=== PATIENT | female | born 2000 | race Caucasian/White ===

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

== ENCOUNTER 2020-01-08 16:10 | Emergency (ER) | payer SELFPAY ==
--- OUTSIDE RECORDS SUMMARY | 2020-01-08 16:11 | XMS REPORT | Summary of Care ---
:2000 Author Organization [facility] - Health Address [address] [place] [address] Care Team Providers Name Role Phone Pcp, Does Not Have A Primary Care Provider Encounter Details Date Type Department Care Team Description 10/12/2019 Orders Only [facility] Doctor Unassigned, No [address] [facility] [place] [address] [address] [id number] Allergies Active Allergy Reactions Severity Noted Date Comments Shrimp Anaphylaxis 04/11/2018 Olanzapine Swelling, Other - See comments 10/22/2018 Muscle rigidity documented as of this encounter (statuses as of 10/12/2019) Medications Medication Sig Dispensed Refills Start Date End Date Status METADATE CD ORAL once daily 0 Ac tive SUPRAX 100 MG/5 ML ORAL 4ml 2x daily 0 Active SUSR AMOXICILLIN 400 MG/5 ML 1tsp po 2x daily 0 Active ORAL SUSR documented as of this encounter (statuses as of 10/12/2019) Active Problems Problem Noted Date Special screening for other specified conditions(V82.8 9) 11/30/2006 Overview: [place] - familia Routine or child health check 08/16/2006 Overview: 2 week, 4 months, 7 months, 9 months, 4 year, 5 year, Attention deficit hyperactivity disorder (ADHD) 2006 Overview: ICD10 Diagnosis Term Rental Agent Utility Urinary incontinence 08/16/2006 Overview: ICD10 Diagnosis Term Rental Agent Utility Other and unspecified diseases of upper respiratory tr act 08/16/2006 documented as of this encounter (statuses as of 10/12/2019) Immunizations Name Administration Dates Next Due Varicella (varivax)(chicken pox) 10/18/2006 documented as of this encounter Social History Tobacco Use Types Packs/Day Years Used Date Never Assessed Sex Assigned at Date Recorded Not on file Job Start Date Occupation Industry Not on file Not on file Not on file Travel History Travel Start Travel End No recent travel history available. documented as of this encounter Last Filed Vital Signs Not on filedocumented in this encounter Plan of Treatment Health Maintenance Due Date Last Done Comments VARICELLA VACCINES (2 of 2 - 01/10/2007 10/18/2006 2-dose childhood series) MENINGOCOCCAL B VACCINES (1 of 2 - 2010 Risk Bexsero 2-dose series) DTaP,Tdap,and Td Vaccines (1 - 2011 Tdap) HPV VACCINES (1 - Female 2-dose 2011 series) Depression Screening 2012 WELL CARE VISIT: 12-21 YEARS 2012 (yearly) CHLAMYDIA SCREENING 2016 11/18/2004 INFLUENZA VACCINE (Season Ended) 2019 MENINGOCOCCAL VACCINE Aged Out No longer eligible based on patient's age to complete this topic PNEUMOCOCCAL 0-64 YEARS COMBINED Aged Out No longer eligible based on SERIES patient's age to complete this topic documented as of this encounter Procedures Procedure Name Priority Date/Time Associated Diagnosis Comme nts CONSENT/REFUSAL FOR Routine 10/12/2019 1:51 PM CDT DIAGNOSIS AND TREATMENT documented in this encounter Results Not on filedocumented in this encounter Insurance Payer Benefit Plan / Subscriber ID Effective Dates Phone Addre ss Type Group SUPERIOR SUPERIOR STAR xxxxxxxxx 1993-Maximus [place] , Medicaid HEALTH PLAN - PLUS [facility] [phone] MANAGED MEDICAID documented as of this encounter
--- OUTSIDE RECORDS SUMMARY | 2020-01-08 16:12 | XMS REPORT | Summary of Care ---
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 Acute cystitis with hematuria [address] [place] [address] [place], [place] [phone] Allergies Active Allergy Reactions Severity Noted Date Comments Shrimp Anaphylaxis 04/11/2018 Olanzapine Swelling, Other - See comments 10/22/2018 Muscle rigidity documented as of this encounter (statuses as of 10/12/2019) Medications Medication Sig Dispensed Refills Start Date End Date Status METADATE CD ORAL once daily 0 Ac tive SUPRAX 100 MG/5 ML 4ml 2x daily 0 Active ORAL SUSR AMOXICILLIN 400 MG/5 1tsp po 2x daily 0 Active ML ORAL SUSR cephALEXin 500 mg Take 1 capsule 14 capsule 0 10/12/201910/18 Active capsuleIndications: by mouth 2 (two) Acute cystitis with times daily for hematuria 7 days. documented as of this encounter (statuses as of 10/12/2019) Active Problems Problem Noted Date Special screening for other specified conditions(V82.8 9) 11/30/2006 Overview: [facility] Routine infant or child health check 08/16/2006 Overview: 2 week, 4 months, 7 months, 9 months, 4 year, 5 year, Attention deficit hyperactivity disorder (ADHD) 2006 Overview: ICD10 Diagnosis Term Honing Machine Set Up Operator Utility Urinary incontinence 08/16/2006 Overview: ICD10 Diagnosis Term Honing Machine Set Up Operator Utility Other and unspecified diseases of upper [...] Travel End No recent travel history available. COVID-19 Exposure Response Date Recorded In the last month, have you been in contact with No / Unsure 10/12/2019 1:51 PM CDT someone who was confirmed or suspected to have Coronavirus / COVID-19? documented as of this encounter Last Filed Vital Signs Vital Sign Reading Time Taken Comments Blood Pressure 108/80 10/12/2019 3:30 PM CDT Pulse 80 10/12/2019 3:30 PM CDT Temperature 36.7 C (98.1 F) 10/12/2019 1:59 PM CDT Respiratory Rate 20 10/12/2019 3:30 PM CDT Oxygen Saturation 99% 10/12/2019 3:30 PM CDT Inhaled Oxygen Concentration - - Weight 59.8 kg (131 lb 12.8 oz) 10/12/2019 1:59 PM CDT Height - - Body Mass Index - - documented in this encounter Discharge Instructions Shelli Frausto FNP - 10/12/2019 You were seen today for Chief Complaint Patient presents with Vaginal Bleeding Your ER diagnosis was ICD-10-CM ICD-9-CM 1. Vaginal bleeding N93.9 623.8 2. Acute cystitis with hematuria N30.01 595.0 NO LIFE-THREATENING FINDINGS ON TODAY'S EXAM. YOUR PRESCRIPTIONS : Medication List ASK your doctor about these medications amoxicillin 400 mg/5 mL oral suspension Commonly known as: AMOXIL METADATE CD ORAL SUPRAX 100 mg/5 mL suspension Generic drug: cefixime ER precautions and follow up : 1. Return to ER if your symptoms should worsen or fail to improve within 72 hours. 2. The care provided in the emergency room was for acute problems only. 3. You should follow up with your primary care provider within 72 hours. 4. Fill and take all your medications as prescribed. 5. Make sure you are staying adequately hydrated. Busque attencion immediatamente si usted tiene los sitomas sigue, vuelve peor o si hay sitomas nuevas o para cualquiera preoccupacion incluyendo dolor del pecho, falta aire, se siente debile, mas fievre, mas dolor, nausea, vomitando, sangrando que no es normal, confusion, baja or pierdas conciencia. FOLLOW-UP RECOMMENDATIONS: RECOMMEND FOLLOW-UP WITH A PRIMARY CARE PROVIDER OR SPECIALIST IN 2-5 DAYS, ESPECIALLY IF NO IMPROVEMENT IN SYMPTOMS. MAY FOLLOW-UP WITH A PROVIDER OF YOUR CHOICE, SUCH : 1. A PHYSICIAN OF YOUR CHOICE 2. [facility], . LOCATIONS IN [facility] 3. [facility], [address] [place] [address]; [phone] OR, IF YOU WISH TO FOLLOW-UP WITHIN THE [facility], MAY TRY THESE OPTIONS (CLINIC APPOINTMENTS AVAILABLE ON LLQP-GM-ABIV BASIS): 1. SCHEDULE AN APPOINTMENT ONLINE AT [email or web address][facility] 2. OR CALL THE [facility] ACCESS CENTER AT OR 3. OR CALL YOUR [facility] PHYSICIAN'S OFFICE DIRECTLY IF YOU ARE ALREADY AN ESTABLISHED [facility] PATIENT. AttachmentsThe following attachments cannot be sent through Care Everywhere. Uterine Bleeding, Understanding (Serbian)Urinary Tract Infections (UTIs), Understanding (Serbian)documented in this encounter Plan of Treatment Name Type Priority Associated Diagnoses Date/Ti me URINE CULTURE LAB STAT Vaginal bleeding 10/12/2019 2:23 PM CDT TOTAL [facility] LAB STAT Add-On Vaginal bleeding 10/12/2019 2:22 PM CDT (QUANTITATIVE) Name Type Priority Associated Diagnoses Order S chedule URINE CULTURE LAB Routine Vaginal bleeding ONCE for 1 Occurrences starting 2019 until 0 TOTAL [facility] LAB STAT Add-On Vaginal bleeding ONCE for 1 Occurrences (QUANTITATIVE) starting 07/2019 until 0 GC & CHLAMYDIA LAB Routine Vaginal bleeding ONCE for 1 Occurrences AMPLIFIED ASSAY starting 07/2019 until 0 Health Maintenance Due Date Last Done Comments [...] encounter Procedures Procedure Name Priority Date/Time Associated Comments Diagnosis URINALYSIS STAT 10/12/2019 2:23 Vaginal bleeding Results for this PM CDT procedure are i n the results section. CBC WITH DIFFERENTIAL STAT 10/12/2019 2:22 Vaginal bleedin g Results for this PM CDT procedure are i n the results section. CBC WITH DIFFERENTIAL STAT 10/12/2019 2:22 Vaginal bleedin g Results for this PM CDT procedure are i n the results section. BASIC METABOLIC PANEL STAT 10/12/2019 2:22 Vaginal bleedin g Results for this (NA, K, CL, CO2, PM CDT procedure a re in GLUCOSE, BUN, the results CREATININE, CA) section. TEST, SERUM STAT 10/12/2019 2:22 Vaginal bleedin g Results for this PM CDT procedure are i n the results section. NOTICE OF PRIVACY Routine 10/12/2019 1:51 PRACTICES PM CDT documented in this encounter Results URINALYSIS (10/12/2019 2:23 PM CDT) Pathologist Sig nature APPEARANCE Clear Clear [facility] COLOR Yellow Yellow [facility] PH 6.0 4.8 - 8.0 [facility] SP GRAVITY 1.015 1.003 - 1.030 [facility] GLU U QUAL Normal Normal [facility] BLOOD 3+ (A) Negative [facility] KETONES 5 mg/dL (A) Negative [facility] PROTEIN Negative Negative [facility] UROBILIN Normal Normal [facility] BILIRUBIN Negative Negative [facility] NITRITE Negative Negative [facility] LEUK NAIMA 25/uL (A) Negative [facility] RBC/HPF 65 (H) 0 - 3 HPF [facility] WBC/HPF 14 (H) 0 - 5 HPF [facility] BACTERIA Few (A) Negative [facility] MUCOUS Slight (A) Negative LPF [facility] SQ EPITH 3 HPF [facility] Specimen Urine - URINE, CLEAN CATCH Performing Organization Address City/State/Zipcode Phone Number [facility] CLIA: [id number], [address] [place] [phone] CBC WITH DIFFERENTIAL (10/12/2019 2:22 PM CDT) Pathologist Sig nature WBC 6.15 4.30 - 11.10 [facility] 10*3/L [facility] RBC 4.02 3.93 - 5.25 [facility] 10*6/L [facility] HGB 12.3 11.6 - 15.0 [facility] g/dL [facility] HCT 35.0 (L) 35.7 - 45.2 % [facility] MCV 87.1 80.6 - 95.5 fL [facility] MCH 30.6 25.9 - 32.8 pg [facility] MCHC 35.1 31.6 - 35.1 [facility] g/dL [facility] RDW-SD 35.4 (L) 39.0 - 49.9 fL [facility] RDW-CV 11.2 (L) 12.0 - 15.5 % [facility] PLT 219 166 - 358 [facility] 10*3/L HOS[facility]ITAL [facility] MPV 10.5 9.5 - 12.9 fL [facility] NRBC/100 WBC 0.0 0.0 - 10.0 /100 [facility] WBCs [facility] NRBC x10^3 <0.01 10*3/L [facility] GRAN MAT (NEUT) % 57.8 % [facility] IMM GRAN % 0.30 % [facility] LYMPH % 29.6 % [facility] MONO % 9.8 % [facility] EOS % 2.0 % [facility] BASO % 0.5 % [facility] GRAN MAT x10^3(ANC) 3.56 1.88 - 7.09 [facility] 10*3/uL [facility] IMM GRAN x10^3 <0.03 0.00 - 0.06 [facility] 10*3/uL HOSPITAL LAB[facility] LYMPH x10^3 1.82 1.32 - 3.29 [facility] 10*3/uL [facility] MONO x10^3 0.60 0.33 - 0.92 [facility] 10*3/uL HOSPITAL LAB[facility] EOS x10^3 0.12 0.03 - 0.39 [facility] 10*3/uL HOSPITAL [facility] BASO x10^3 0.03 0.01 - 0.07 [facility] 10*3/uL [facility] Specimen Blood - VENOUS Performing Organization Address City/State/Zipcode Phone Number [facility] CLIA: [id number], [address] [place] [phone] BASIC METABOLIC PANEL (NA, K, CL, CO2, GLUCOSE, BUN, CREATININE, CA) (10/12/2019 2:22 PM CDT) Pathologist Sig nature NA 137 135 - 145 [facility] mmol/L [facility] K 3.7 3.5 - 5.0 [facility] mmol/L [facility] CL 104 98 - 108 mmol/L [facility] CO2 TOTAL 22 (L) 23 - 31 mmol/L [facility] AGAP 11 2 - 16 [facility] BUN 15 7 - 23 mg/dL [facility] GLUCOSE 89 70 - 110 mg/dL [facility] CREATININE 0.56 0.50 - 1.04 [facility] mg/dL [facility] CALCIUM 9.7 8.6 - 10.6 [facility] mg/dL [facility] eGFR Calculation 139.5 mL/min/1.73m2 [facility] (Non-) [facility] LABORATOR Y eGFR Calculation 169.0 mL/min/1.73m2 [facility] () [facility] Specimen Blood - VENOUS Narrative Performed At Association of Glomerular Filtration Rate (GFR) [facility] and Staging of Kidney Disease* + + +- + | GFR (mL/min/1.73 m2) | With Kidney Damage | Without Kidney Damage + + +- + | >90 | Stage one | Normal + + +- + | 60-89 | Stage two | Decreased GFR + + +- + | 30-59 | Stage three | Stage three + + +- + | 15-29 | Stage four | Stage four + + +- + | <15 (or dialysis) | Stage five | Stage five + + +- + *Each stage assumes the associated GFR level has been in effect for at least three months. Stages 1 to 5, with or without kidney disease, indicate chronic kidney disease. Notes: Determination of stages one and two (with eGFR >59mL/min/1.73 m2) requires estimation of kidney damage for at least three months as defined by structural or functional abnormalities of the kidney, manifested by either: Pathological abnormalities or Markers of kidney damage (including abnormalities in the composition of the blood or urine or abnormalities in imaging tests). Performing Organization Address [facility] Phone Number [facility] CLIA: [id number], [address] [phone] [employer] TEST, SERUM (10/12/2019 2:22 PM CDT) Pathologist Sig nature PREG SERUM Negative [facility] Specimen Blood - VENOUS Narrative Performed At Less than 10 IU/L. If low titer or ectopic [facility] is suspected, resubmit specimen in 48-72 hours. Performing Organization Address [facility]/Zipcode Phone Number [facility] CLIA: [id number], [address] [phone] [employer] documented in this encounter Visit Diagnoses Diagnosis Vaginal bleeding - Primary Other specified noninflammatory disorder of vagina Acute cystitis with hematuria Acute cystitis documented in this encounter Administered Medications Medication Order MAR Action Action Date Dose Rate Site cefTRIAXone (ROCEPHIN) 1,000 mg Given 10/12/2019 3:56 PM CDT 1, 000 mg in NaCl 0.9% (NS) 50 mL MINI-BAG 1,000 mg, IV Piggyback, ONCE, 1 dose, 10/12/19 at 1700, 50 mL, Reason for Anti-Infective: Empiric Therapy for Suspected Infection, Empiric Therapy Site: Urine, Duration of therapy: 7 days documented in this encounter"
--- OUTSIDE RECORDS SUMMARY | 2020-01-08 16:12 | XMS REPORT | Continuity of Care Document ---
:2000 Author Organization [facility] t Address [address] [place] [address] [address]. [address] [place] [address] Care Team Providers Name Role Phone Sylvie ALEXEY Shelli Gregory Attending Clinician Doctor Unassigned, Name Attending Clinician Unavailable Payers Payer Name Policy Type Policy Number Effective Date Expiration Date S ource Problems This patient has no known problems. Allergies, Adverse Reactions, Alerts Allergy Allergy Status Severity Reaction(s) Onset Inactive Treating Comm ents Source Name Type Date Date Clinician olanzapi DA Active [facility] 12-01 [place] 00:00: [facility] 00 are formerly [facility] Medications This patient has no known medications. Procedures This patient has no known procedures. Encounters Start End Encounter Admission Attending Care Care Encounter Source Date/Time Date/Time Type Type Clinicians Facility Department ID 2019-12-23 2019-12-23 Emergency E [facility] [id number] [facility] 08:11:00 08:11:00 2019-10-12 2019-10-12 Emergency MYRON Mercer [id number] 13:57:15 16:05:00 Shelli Paulino [id number] [place] [id number] [place] [id number] 2019-10-12 2019-10-12 Orders Doctor MIKI [id number] 00:00:00 00:00:00 Only Unassigned, MATTHEW [id number] [place] [id number] 2019-09-18 2019-09-18 Orders Doctor MIKI [id number] 00:00:00 00:00:00 Only Unassigned, MATTHEW [id number] Wade [place] [id number] Results Test Description Test Time Test Comments Results Result Comments Source BASIC METABOLIC PANEL 2019-12-02 22:59:00 Test Item Value Reference Range Interpretation Comme nts SODIUM (test code = NA) 137 mmol/L 135-145 N POTASSIUM (test code = K) 3.7 mmol/L 3.6-5.0 N CHLORIDE (test code = CL) 109 mmol/L 101-111 N CARBON DIOXIDE (test code = 22 mmol/L 21-31 N CO2) GLUCOSE (test code = GLU) 83 mg/dl 70-100 N BLOOD UREA NITROGEN (test 15 mg/dl 6-20 N code = BUN) GLOMERULAR FILTRATION RATE >=60 max estimate >60 The estimated glomerular (test code = GFR) filtration rate is computed usingpatient ra ce, age (>18), sex, and serum creatinine. If anyof the needed data yohannes ments are missing the Lab oratory cannot compute an estimation of the glomerul ar filtration rate. CREATININE (test code = 0.65 mg/dL 0.44-1.03 N CREAT) CALCIUM (test code = CA) 9.1 mg/dL 8.5-10.5 N LIVER FUNCTION [id number] 22:59:00 Test Item Value Reference Range Interpretation Comments TOTAL PROTEIN (test code = PROT) 6.8 g/dL 6.7-8.2 N ALBUMIN (test code = ALB) 4.3 g/dL 3.2-5.5 N BILIRUBIN TOTAL (test code = BILT) 0.60 mg/dL 0.2-1.3 N BILIRUBIN DIRECT (test code = 0.1 mg/dL 0.00-0.20 N BILD) SGOT/AST (test code = AST) 22 U/L 10-42 N SGPT/ALT (test code = ALT) 13 U/L 10-60 N ALKALINE PHOSPHATASE (test code = 45 U/L 42-121 N ALKP) [id number] 22:59:00 Test Item Value Reference Range Interpretation Comments LIPASE (test code = LIP) 19 IU/L 22-51 L URINALYSIS [id number] 22:42:00 Test Item Value Reference Range Interpretation Comments UA COLOR (test code = COLU) YELLOW UA APPEARANCE (test code = APPU) CLEAR UA GLUCOSE DIPSTICK (test code = NEGATIVE DGLUU) UA BILIRUBIN DIPSTICK (test code = NEGATIVE BILU) UA KETONE DIPSTICK (test code = NEGATIVE KETU) UA SPECIFIC GRAVITY (test code = 1.001-1.030 SGU) UA BLOOD DIPSTICK (test code = NEGATIVE LINDSAY) UA PH DIPSTICK (test code = RICK) 5.0-9.0 UA PROTEIN DIPSTICK (test code = NEGATIVE PROU) UA UROBILINOGEN DIPSTICK (test <=1.0 code = URO) UA NITRITE DIPSTICK (test code = NEGATIVE DANE) UA ASCORBIC ACID DIPSTICK (test code = AAU) UA LEUKOCYTE ESTERASE DIPSTICK NEGATIVE (test code = LEUU) UA WBC (test code = WBCU) 11-20 /HPF 0-5 UA RBC (test code = RBCU) 6-10 /HPF 0-5 UA EPITHELIAL CELLS (test code = MOD /LPF NONE-FEW EPIU) UA BACTERIA (test code = BACU) None /HPF NONE SEEN UA MUCUS (test code = MUCU) 4+ /LPF NONE SEEN URINALYSIS [id number] 22:42:00 Test Item Value Reference Range Interpretation Comments UA COLOR (test code = COLU) YELLOW YELLOW UA APPEARANCE (test code = APPU) HAZY CLEAR UA GLUCOSE DIPSTICK (test code = NEGATIVE NEGATIVE DGLUU) UA BILIRUBIN DIPSTICK (test code = NEGATIVE NEGATIVE BILU) UA KETONE DIPSTICK (test code = NEGATIVE NEGATIVE KETU) UA SPECIFIC GRAVITY (test code = 1.027 1.001-1.030 SGU) UA BLOOD DIPSTICK (test code = NEGATIVE NEGATIVE LINDSAY) UA PH DIPSTICK (test code = RICK) 5.0 5.0-9.0 UA PROTEIN DIPSTICK (test code = 2+ NEGATIVE A PROU) UA UROBILINOGEN DIPSTICK (test NEGATIVE <=1.0 code = URO) UA NITRITE DIPSTICK (test code = NEGATIVE NEGATIVE DANE) UA ASCORBIC ACID DIPSTICK (test NEGATIVE code = AAU) UA LEUKOCYTE ESTERASE DIPSTICK 1+ NEGATIVE A (test code = LEUU) UA WBC (test code = WBCU) 11-20 /HPF 0-5 UA RBC (test code = RBCU) 6-10 /HPF 0-5 UA EPITHELIAL CELLS (test code = MOD /LPF NONE-FEW EPIU) UA BACTERIA (test code = BACU) None /HPF NONE SEEN UA MUCUS (test code = MUCU) 4+ /LPF NONE SEEN BASIC METABOLIC [id number] 22:41:00 Test Item Value Reference Range Interpretation Comments SODIUM (test code 137 mmol/L 135-145 N = NA) POTASSIUM (test 3.7 mmol/L 3.6-5.0 N code = K) CHLORIDE (test 109 mmol/L 101-111 N code = CL) CARBON DIOXIDE 22 mmol/L 21-31 N (test code = CO2) GLUCOSE (test code 83 mg/dl 70-100 N = GLU) BLOOD UREA 15 mg/dl 6-20 N NITROGEN (test code = BUN) GLOMERULAR >=60 max >60 The estimated FILTRATION RATE estimate glomerular (test code = GFR) filtration rate is computed usingpatient ra ce, age (>18), sex, and serum creatinin e. If anyof the neede d data elements a re missing the Laboratory naeem ot compute an estimation of t he glomerular filtration rate . CREATININE (test 0.65 mg/dL 0.44-1.03 N code = CREAT) CALCIUM (test code 9.1 mg/dL 8.5-10.5 N = CA) LIVER FUNCTION [id number] 22:41:00 Test Item Value Reference Range Interpretation Comments TOTAL PROTEIN (test code = PROT) g/dL 6.7-8.2 ALBUMIN (test code = ALB) g/dL 3.2-5.5 BILIRUBIN TOTAL (test code = BILT) mg/dL 0.2-1.3 BILIRUBIN DIRECT (test code = BILD) mg/dL 0.00-0.20 SGOT/AST (test code = AST) U/L 10-42 SGPT/ALT (test code = ALT) U/L 10-60 ALKALINE PHOSPHATASE (test code = U/L 42-121 ALKP) [id number] 22:41:00 Test Item Value Reference Range Interpretation Comments LIPASE (test code = LIP) IU/L 22-51 HCG SERUM [id number] 22:41:00 Test Item Value Reference Range Interpretation Comments HCG SERUM QUAL NEGATIVE NEGATIVE This is a qu alitative (test code = HCGQL) screenin g test.The quantitative Bh cg may be helpful.Weakly positive results should be repeated in 48 hours. CBC W/AUTO [id number] 22:28:00 Test Item Value Reference Range Interpretation Comments WHITE BLOOD CELL (test code = 6.8 x10 3/uL 3.2-11.5 N WBC) RED BLOOD CELL (test code = 3.91 x10(6)/m 3.70-5.10 N RBC) HEMOGLOBIN (test code = HGB) 11.6 g/dL 12.0-15.0 L HEMATOCRIT (test code = HCT) 35.3 % 35.7-44.8 L MEAN CELL VOLUME (test code = 90 fL 80-100 N MCV) MEAN CELL HGB (test code = MCH) 29.7 pg 26.2-33.8 N MEAN CELL HGB CONCENTRATION 32.9 g/dL 30.0-34.0 N (test code = MCHC) RED CELL DISTRIBUTION WIDTH 12.4 % 11.3-14.5 N (test code = RDW) PLATELET COUNT (test code = 172 x10 3/uL 130-408 N PLT) MEAN PLATELET VOLUME (test code 11.0 fL 8.6-12.6 N = MPV) NEUTROPHIL % (test code = NT%) 51.9 % 40.0-70.0 N IMMATURE GRANULOCYTE % (test 0.1 % 0.0-2.0 N code = IG%) LYMPHOCYTE % (test code = LY%) 38.3 % 20-40 N MONOCYTE % (test code = MO%) 8.7 % 1-10 N EOSINOPHIL % (test code = EO%) 0.7 % 0.0-5.0 N BASOPHIL % (test code = BA%) 0.3 % 0.0-1.0 N NUCLEATED RBC % (test code = 0.0 % 0.0-0.9 N NRBC%) NEUTROPHIL # (test code = NT#) 3.5 x10 3/uL 1.6-7.2 N LYMPHOCYTE # (test code = LY#) 2.60 x10 3/uL 1.1-2.7 N MONOCYTE # (test code = MO#) 0.6 x10 3/uL 0.3-0.8 N EOSINOPHIL # (test code = EO#) 0.1 x10 3/uL 0.0-0.5 N BASOPHIL # (test code = BA#) 0.0 x10 3/uL 0.0-0.1 N
[2020-01-08 17:09] LABS: Absolute Lymphocytes (CBC) 1.4 K/uL (0.7-4.9); Basophils % 0.3 % (0-1.3); Hematocrit 35.1 % (36.0-45.0); MPV 9.5 fL (7.6-11.3); RBC Red Blood Cell Count 3.99 M/uL (3.86-4.86)
[2020-01-08] MEDS ORDERED: ONDANSETRON 4 MG/2 ML VIAL ONE (17:13)
[2020-01-08] MEDS ORDERED: FAMOTIDINE 20 MG/2 ML VIAL IV ONE (17:13)
[2020-01-08 17:26] LABS: ALT/SGPT 14 U/L (12-78); AST/SGOT 10 U/L (15-37); Alkaline Phosphatase 52 U/L (45-117); BUN Blood Urea Nitrogen 14 mg/dL (7-18); Bicarbonate 24 mmol/L (21-32); Bilirubin Total 0.6 mg/dL (0.2-1.0); Glucose Level 86 mg/dL (74-106); Potassium 3.8 mmol/L (3.5-5.1); Protein, Total 7.8 g/dL (6.4-8.2); Sodium Level 137 mmol/L (136-145)
[2020-01-08 17:30] LABS: Urine RBC <5 /HPF (NONE SEEN)
[2020-01-08 17:31] LABS: Urine Bacteria 20-50 /HPF (<20); Urine Culture Reflex Order REFLEXED
--- NOTE | 2020-01-08 17:50 | EDPHYS ---
Physician Documentation [facility] Name: Esther Sears Age: 19 yrs Sex: Female : 2000 Arrival Date: 01/08/2020 Time: 16:13 Bed 17 Private MD: ED Physician Nomi Ash HPI: 01/07 16:30 This 19 yrs old Female presents to ER via EMS with complaints of cp Nausea/Vomiting. 16:30 The patient presents to the emergency department with vomiting, 1 times today. Possible cp causes: . Associated signs and symptoms: Pertinent positives: hematemesis, Pertinent negatives: abdominal pain, constipation, diarrhea, fever. Historical: - Allergies: 16:16 Zyprexa; ll1 16:16 Risperdal; ll1 16:16 PENICILLINS; ll1 16:16 SHELLFISH; ll1 16:16 seafood; ll1 - PMHx: 16:16 ADD/ADHD; Asthma; Hypertension; Schizophrenia; Seizures; kidney infections; ll1 - PSHx: 16:16 None; ll1 - Immunization history:: Flu vaccine is up to date. - Social history:: Smoking status: Patient denies any tobacco usage or history of. Patient uses street drugs, marijuana, "I use marijuana to control my seizures since I can't get my seizure medication".. ROS: 16:35 Constitutional: Negative for body aches, chills, fever, poor PO intake. cp 16:35 Eyes: Negative for injury, pain, redness, and discharge. cp 16:35 ENT: Negative for ear pain, sore throat, difficulty swallowing, difficulty handling secretions. 16:35 Cardiovascular: Negative for chest pain, palpitations. 16:35 Respiratory: Negative for cough, shortness of breath, wheezing. 16:35 Abdomen/GI: Positive for hematemesis, Negative for abdominal pain, nausea, active vomiting. 16:35 : Negative for urinary symptoms, vaginal bleeding, vaginal discharge. 16:35 Neuro: Negative for altered mental status, headache, syncope, weakness. 16:35 All other systems are negative. Exam: 16:40 Constitutional: The patient appears in no acute distress, alert, awake, non-toxic, well cp developed, well nourished. 16:40 Head/Face: Normocephalic, atraumatic. cp 16:40 Eyes: Periorbital structures: appear normal, Conjunctiva: normal, no exudate, no injection, Lids and lashes: appear normal, bilaterally. 16:40 ENT: External ear(s): are unremarkable, Nose: is normal, Mouth: Lips: moist, Oral mucosa: moist, Posterior pharynx: Airway: no evidence of obstruction, patent. 16:40 Chest/axilla: Inspection: normal, Palpation: is normal, no crepitus, no tenderness. 16:40 Cardiovascular: Rate: normal, Rhythm: regular. 16:40 Respiratory: the patient does not display signs of respiratory distress, Respirations: normal, no use of accessory muscles, no retractions, labored breathing, is not present, Breath sounds: are clear throughout, no decreased breath sounds, no stridor, no wheezing. 16:40 Abdomen/GI: Inspection: abdomen appears normal, Bowel sounds: active, all quadrants, Palpation: abdomen is soft and non-tender, in all quadrants. 16:40 Back: pain, is absent, ROM is normal. 16:40 Neuro: Orientation: to person, place \\T\\ time. Mentation: is normal. Vital Signs: 16:14 BP 104 / 69; Pulse 88; Resp 16; Temp 97.0; Pulse Ox 100% ; ll1 17:30 BP 102 / 76; Pulse 89; Resp 18; Pulse Ox 100% on R/A; ph 18:15 BP 102 / 68; Pulse 87; Resp 18; Temp 98.0; Pulse Ox 99% on R/A; ph MDM: 16:27 Patient medically screened. cp 17:48 Data reviewed: vital signs, nurses notes, lab test result(s), and as a result, I will cp discharge patient. 17:48 Counseling: I had a detailed discussion with the patient and/or guardian regarding: the cp historical points, exam findings, and any diagnostic results supporting the discharge/admit diagnosis, the need for outpatient follow up, an OB/Gyne specialist, to return to the emergency department if symptoms worsen or persist or if there are any questions or concerns that arise at home. 01/07 16:30 Order name: Urine Microscopic Only cp 01/07 16:30 Order name: CBC with Diff; Complete Time: 17:29 cp 01/07 17:29 Interpretation: Normal except: WBC 6.8; HCT 35.1. 01/07 16:30 Order name: CMP; Complete Time: 17:29 01/07 17:30 Interpretation: Normal except: AST 10; GLOB 3.8. 01/07 16:30 Order name: Urine Microscopic Only; Complete Time: 17:31 EDMO 01/07 17:31 Interpretation: Normal except: UBACT 20-50. 01/07 17:12 Order name: Urine Dipstick--Ancillary (enter results) co 01/07 17:14 Order name: Urine --Ancillary (enter results) co 01/07 16:30 Order name: Urine Dipstick-Ancillary (obtain specimen); Complete Time: 17:12 01/07 16:30 Order name: Urine Test (obtain specimen); Complete Time: 17:12 01/07 17:32 Order name: Urine Culture EDMO Administered Medications: 17:16 Drug: Zofran (Ondansetron) 4 mg Route: PO; ph 18:14 Follow up: Response: No adverse reaction ph 17:16 Drug: Pepcid 20 mg Route: PO; ph 18:14 Follow up: Response: No adverse reaction ph 18:14 Drug: Nitrofurantoin 100 mg Route: PO; ph 18:14 Follow up: Response: No adverse reaction ph Disposition: 01/08/20 17:49 Discharged to Home. Impression: Nausea and vomiting, related conditions, unspecified, first trimester, Urinary tract infection, site not specified. - Condition is Stable. - Discharge Instructions: Nausea and Vomiting, Adult, First Trimester of , and Urinary Tract Infection. - Prescriptions for Macrobid 100 mg Oral Capsule - take 1 capsule by ORAL route every 12 hours for 7 days; 14 capsule. promethazine 25 mg Oral Tablet - take 1 tablet by ORAL route every 6 hours As needed; 20 tablet. - Medication Reconciliation Form, Thank You Letter, Antibiotic Education, Prescription Opioid Use form. - Follow up: Private Physician; When: 1 - 2 days; Reason: Recheck today's complaints. - Problem is new. - Symptoms have improved. Addendum: 01/10/2020 09:17 Co-signature as Attending Physician, Nomi Ash MD I agree with the assessment and k dr plan of care. Signatures: Dispatcher [employer] [facility] Nomi Ash MD MD kdr Hall, Patricia, RN RN ph Ac De La Rosa PA PA cp Jerson Corado, RN RN ll1 Corrections: (The following items were deleted from the chart) 01/07 17:30 17:30 Normal except: AST 10. cp cp 18:16 17:49 01/08/2020 17:49 Discharged to Home. Impression: Nausea and vomiting; ph related conditions, unspecified, first trimester; Urinary tract infection, site not specified. Condition is Stable. Prescriptions for Macrobid 100 mg Oral Capsule - take 1 capsule by ORAL route every 12 hours for 7 days; 14 capsule. and Forms are Medication Reconciliation Form, Thank You Letter, Antibiotic Education, Prescription Opioid Use. Follow up: Private Physician; When: 1 - 2 days; Reason: Recheck today's complaints. Problem is new. Symptoms have improved. cp
--- NOTE | 2020-01-08 17:50 | ER ---
Nurse's Notes [facility] Name: Esther Sears Age: 19 yrs Sex: Female : 2000 Arrival Date: 01/08/2020 Time: 16:13 Bed 17 Private MD: Diagnosis: Nausea and vomiting; related conditions, unspecified, first trimester;Urinary tract infection, site not specified Presentation: 01/07 16:14 Chief complaint: Patient states: 7 weeks . Vomited today with dark red blood in ll1 it. Coronavirus screen: Client denies travel out of the [place] in the last 14 days. At this time, the client does not indicate any symptoms associated with coronavirus-19. Ebola Screen: Patient denies travel to an Ebola-affected area in the 21 days before illness onset. Initial Sepsis Screen: Does the patient meet any 2 criteria? No. Patient's initial sepsis screen is negative. Risk Assessment: Do you want to hurt yourself or someone else? Patient reports no desire to harm self or others. Onset of symptoms was January 08, 2020. 16:14 Method Of Arrival: EMS ll1 16:14 Acuity: ARNAUD 3 ll1 18:16 Initial Sepsis Screen: Does the patient have a suspected source of infection? No. ph Patient's initial sepsis screen is negative. Historical: - Allergies: 16:16 Zyprexa; ll1 16:16 Risperdal; ll1 16:16 PENICILLINS; ll1 16:16 SHELLFISH; ll1 16:16 seafood; ll1 - PMHx: 16:16 ADD/ADHD; Asthma; Hypertension; Schizophrenia; Seizures; kidney infections; ll1 - PSHx: 16:16 None; ll1 - Immunization history:: Flu vaccine is up to date. - Social history:: Smoking status: Patient denies any tobacco usage or history of. Patient uses street drugs, marijuana, "I use marijuana to control my seizures since I can't get my seizure medication".. Screenin:58 Abuse screen: Denies threats or abuse. Denies injuries from another. Nutritional ph screening: No deficits noted. Tuberculosis screening: No symptoms or risk factors identified. Fall Risk None identified. Assessment: 16:30 General: Appears in no apparent distress. comfortable, Behavior is calm, cooperative, ph appropriate for age, Denies fever, feeling ill. Pain: Denies pain. Neuro: Level of Consciousness is awake, alert, obeys commands, Oriented to person, place, time, situation. Cardiovascular: Capillary refill < 3 seconds in bilateral fingers Patient's skin is warm and dry. Respiratory: Airway is patent Respiratory effort is even, unlabored, Respiratory pattern is regular, symmetrical. GI: Abdomen is non-distended, Reports nausea, vomiting, Patient currently denies abdominal pain. : No signs and/or symptoms were reported regarding the genitourinary system. Derm: Skin is intact, Skin is pink, warm \\T\\ dry. 18:14 Reassessment: Patient appears in no apparent distress at this time. Patient and/or ph family updated on plan of care and expected duration. Pain level reassessed. Patient is alert, oriented x 3, equal unlabored respirations, skin warm/dry/pink. Pt d/c home,. provided w/ list of sliding scale clinics and community resources. Vital Signs: 16:14 BP 104 / 69; Pulse 88; Resp 16; Temp 97.0; Pulse Ox 100% ; ll1 17:30 BP 102 / 76; Pulse 89; Resp 18; Pulse Ox 100% on R/A; ph 18:15 BP 102 / 68; Pulse 87; Resp 18; Temp 98.0; Pulse Ox 99% on R/A; ph ED Course: 16:13 Patient arrived in ED. ll1 16:14 Dana Eastman, JIM is Primary Nurse. ph 16:14 Ac De La Rosa PA is PHCP. cp 16:14 Nomi Ash MD is Attending Physician. cp 16:15 Triage completed. ll1 16:17 Arm band placed on Patient placed in an exam room, on a stretcher. ll1 16:56 Initial lab(s) drawn, by me, sent to lab. Inserted saline lock: 20 gauge in right dh3 antecubital area, using aseptic technique. Blood collected. 16:58 Patient has correct armband on for positive identification. Placed in gown. Bed in low ph position. Call light in reach. Side rails up X 1. Pulse ox on. NIBP on. Door closed. Noise minimized. Warm blanket given. 17:13 Urine Microscopic Only Sent. dh3 17:55 No provider procedures requiring assistance completed. IV discontinued, intact, ph bleeding controlled, No redness/swelling at site. Pressure dressing applied. Administered Medications: 17:16 Drug: Zofran (Ondansetron) 4 mg Route: PO; ph 18:14 Follow up: Response: No adverse reaction ph 17:16 Drug: Pepcid 20 mg Route: PO; ph 18:14 Follow up: Response: No adverse reaction ph 18:14 Drug: Nitrofurantoin 100 mg Route: PO; ph 18:14 Follow up: Response: No adverse reaction ph Outcome: 17:49 Discharge ordered by . cp 18:15 Discharged to home ambulatory. ph 18:15 Condition: good 18:15 Discharge instructions given to patient, Instructed on discharge instructions, follow up and referral plans. medication usage, Demonstrated understanding of instructions, follow-up care, medications, Prescriptions given X 2. 18:16 Patient left the ED. ph Signatures: Dana Eastman, RN RN ph Ac De La Rosa PA PA cp Herrera, Deanna 3 Jerson Corado RN RN ll1
[2020-01-08] MEDS ORDERED: NITROFURAN MACRO 100 MG CAP PO ONE (18:15)
[2020-01-08 18:48] VITALS: BP 102/68; TEMP 98; O2SAT 99
[2020-01-08 20:12] LABS: Urine Blood NEGATIVE (NEG); Urine Glucose NEGATIVE (NEG); Urine Protein NEGATIVE (NEG); Urine pH 5.5 (5.0-7.0)
== END 2020-01-08 18:16 | disposition home or self-care (01) ==
LOC: ER 16:10
DX: O23.41 Unspecified infection of urinary tract in pregnancy, first trimester (principal); Z3A.00 Weeks of gestation of pregnancy not specified; Z88.0 Allergy status to penicillin; Z88.8 Allergy status to other drugs, medicaments and biological substances; Z91.013 Allergy to seafood
CPT/HCPCS: 36415; 80053; 81003; 81015; 81025; 85025; 87086; 87088; 99284; J2405